=== PATIENT | male | born 2000 | race Caucasian/White ===

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

== ENCOUNTER → 2022-11-09 | Outpatient (CLI) | payer OTHER, SELFPAY ==
--- NOTE | 2022-11-09 12:49 | ECHOD_ITS ---
Reason For Study: Mitral Valve Prolapse Procedure This was a 2D Doppler, Color Flow transthoracic echocardiogram. Technically difficult study due to patients body habitus. Exam performed in department. Left Ventricle Normal LV size. Left ventricular systolic function is normal. The estimated ejection fraction is 60 %. Normal diastology for age. No regional wall motion abnormalities noted. Right Ventricle Normal RV size. Normal systolic function. Atria Normal left atrium. Normal right atrium. Mitral Valve Mild mitral valve prolapse. Tricuspid Valve Normal tricuspid valve. Mild tricuspid valve insufficiency. Pulmonary artery systolic pressure is 30 mmHg. Aortic Valve Normal aortic valve. Trisinus/trileaflet aortic valve. Pulmonic Valve Normal pulmonic valve. Great Vessels Normal aortic root. The pulmonary artery is normal size. Normal inferior vena cava. Pericardium/Pleural No pericardial effusion. MMode/2D Measurements & Calculations LVIDd: 4.5 cm IVSd: 0.82 cm Ao root diam: 2.8 cm LVIDs: 3.0 cm LVPWd: 0.81 cm LA dimension: 3.0 cm RVDd: 4.1 cm FS: 33.5 % LAV(MOD-sp4): 41.7 ml LA A4 area: 16.9 cm2 RA A4 area: 12.9 cm2 Time Measurements MV dec time: 0.18 sec Doppler Measurements & Calculations MV E max zaid: 91.1 cm/sec Lat Peak E' Zaid: 25.7 cm/sec Med Peak E' Zaid: 16.8 cm/sec MV A max zaid: 41.2 cm/sec E/E' lat: 3.5 E/E' med: 5.4 MV E/A: 2.2 MV V2 max: 124.0 cm/sec MV P1/2t max zaid: 125.5 cm/sec Ao V2 max: 108.9 cm/sec MV max P.1 mmHg MV P1/2t: 66.3 msec Ao max P.7 mmHg MV V2 mean: 50.6 cm/sec MV dec slope: 554.3 cm/sec2 MV mean P.4 mmHg MVA(P1/2t): 3.3 cm2 MV V2 VTI: 26.4 cm LV V1 max: 100.6 cm/sec PA V2 max: 80.9 cm/sec TR max zaid: 251.2 cm/sec LV V1 max P.1 mmHg TR max P.3 mmHg ECHO/Echo Complete Interpretation Summary Normal LV size. Left ventricular systolic function is normal. The estimated ejection fraction is 60 %. Mild mitral valve prolapse. Pulmonary artery systolic pressure is 30 mmHg. Ordering Physician: Melo Urbano Referring Physician: Melo Urbano Performed By: Abhishek Sanchez RCS
== END | disposition home or self-care (01) ==
LOC: CVS 12:48
PROVIDERS: Referring Provider Internal Medicine Cardiovascular Disease; Visit Provider Internal Medicine Cardiovascular Disease
DX: R07.9 Chest pain, unspecified (principal); I34.1 Nonrheumatic mitral (valve) prolapse
CPT/HCPCS: 93225; 93226; 93306